=== PATIENT | female | born 1970 | race Caucasian/White ===

== ENCOUNTER → 2021-07-26 | Outpatient (CLI) | payer OTHER, SELFPAY ==
--- NOTE | 2021-07-26 | MISC_PTH ---
PATIENT: MEREDITH WATTERS LOC: [facility] U#:[id number] AGE/SX: 51/F ROOM: RE07/26/[address]: JAMAR Scott : 1970 BED: DIS: 07/26/2021 SPEC #: [id number] RECD: 07/26/21 12:56 STATUS: CHANDLER REParish #: [id number] GABE: 07/26/21 00:[address]: Monica Gupta NP DEPT: SURGICAL PATHOLOGY RECD BY: Emerson Tripathi ENTERED: 07/26/21 12:57 SP TYPE: MISC OTHR DR: JAMAR Doyle Tissues: FOREIGN BODY Procedures: Surgery Specimen Level I HEADER OPERATION: Not noted PRE-OP DIAGNOSIS: Tick analysis TISSUE SUBMITTED: Tick analysis MICROSCOPIC DIAGNOSIS Tic removed from patient: Consistent with male Dermacentor variabilis tick ([place] dog tick). AM 07/26/2021 MICROSCOPIC DESCRIPTION Slide is reviewed. GROSS DESCRIPTION Received in sterile container labeled with the patient?s name and designated ?tick analysis?. The specimen consists of a dark tanner tick measuring 0.6 x 0.3 x 0.2 cm. The specimen is prepared for microscopic examination. /am;am 07/26/2021 [id number]
== END | disposition home or self-care (01) ==
PROVIDERS: PCP Nurse Practitioner Family; Referring Provider Nurse Practitioner Adult Health; Visit Provider Nurse Practitioner Adult Health
DX: S10.96XA Insect bite of unspecified part of neck, initial encounter (principal); W57.XXXA Bitten or stung by nonvenomous insect and other nonvenomous arthropods, initial encounter
CPT/HCPCS: 88300